=== PATIENT | male | born 1955 | race Caucasian/White ===

== ENCOUNTER → 2017-07-25 | Outpatient (CLI) | payer OTHER ==
--- NOTE | 2017-07-26 15:40 | Diagnostic Imaging Report ---
INDICATION: Cough for 2-3 months. TIME OF EXAM: 12:12 PM COMPARISON: No prior studies are available for comparison. FINDINGS: The heart size is normal. There is hyperinflation consistent with COPD. No infiltrates are detected. No effusion or pneumothorax is identified. IMPRESSION: COPD. No acute abnormality is detected. Dictated by: Dictated on workstation # [id number]
== END ==
LOC: RAD 11:42
PROVIDERS: ATTEND Family Medicine
DX: R05 Cough (principal)
CPT/HCPCS: 71046

== ENCOUNTER → 2017-08-02 | Outpatient (CLI) | payer OTHER ==
[~2017-08-02] MED LIST: LACT1CAP64 PO; METR500T PO; RT-ALBUTEROL SULF 2.5 MG/3 ML PRE-MIX VIAL INH ONE; SULF1TAB35 PO
== END ==
LOC: RT 14:00
PROVIDERS: ATTEND Family Medicine
DX: J44.9 Chronic obstructive pulmonary disease, unspecified (principal)
CPT/HCPCS: 94060; 94726; 94729

== ENCOUNTER → 2017-10-31 | Outpatient (CLI) | payer OTHER ==
[~2017-10-31] MED LIST changes: -RT-ALBUTEROL SULF 2.5 MG/3 ML PRE-MIX VIAL INH ONE
== END ==
LOC: CARD 08:43
PROVIDERS: ATTEND Internal Medicine Interventional Cardiology
DX: R07.9 Chest pain, unspecified (principal); A77.0 Spotted fever due to Rickettsia rickettsii; R55 Syncope and collapse
CPT/HCPCS: 93306

== ENCOUNTER 2017-11-02 07:51 | Outpatient (RCR) | payer OTHER ==
[~2017-11-02 07:51] MED LIST changes: -CATHETER FLUSH 10 ML SYR IV PRN; -REGADENOSON 0.4 MG/5 ML SYR (LEXISCAN) IV ONE
== END 2017-11-14 | disposition home or self-care (01) ==
LOC: CARD 07:51
PROVIDERS: ATTEND Internal Medicine Interventional Cardiology
DX: R07.9 Chest pain, unspecified (principal); R55 Syncope and collapse; A77.0 Spotted fever due to Rickettsia rickettsii
CPT/HCPCS: 93225; 93226

== ENCOUNTER → 2017-11-02 | Outpatient (CLI) | payer OTHER ==
[~2017-11-02] VITALS: Ht 185.4 cm; Wt 79.4 kg
[~2017-11-02] MED LIST changes: +CATHETER FLUSH 10 ML SYR IV PRN; +REGADENOSON 0.4 MG/5 ML SYR (LEXISCAN) IV ONE
[2017-11-02 09:15] VITALS: BP 123/82
[2017-11-02 09:19] VITALS: BP 122/71
--- NOTE | 2017-11-02 16:33 | Cardiology Stress Test Report ---
Stress Test Report Type of NM Stress Test: Test Type: LEXISCAN 0.4MG/5ML Date of Procedure/Referring: Date of Procedure: Nov 02, 2017 PCP Joel West MD Admitting Physician Quyen Womack MD Indications: Chest pain Baseline Heart Rate: 60 Baseline Blood Pressure: Blood Pressure Systolic: 123 Blood Pressure Diastolic: 82 Baseline EKG: Baseline EKG: sinus rhythm Summary: The patient was brought to the stress lab after informed consent was taken. Stress test was performed according to the Lexiscan protocol. 0.4 mg of IV Lexiscan was given. Low-grade exercise was performed. Baseline EKG showed sinus rhythm at 60 BPM. Initial blood pressure was 123/82 mmHg. Maximum heart rate was 110 bpm and blood pressure 123/73 mmHg. Patient did not have any chest pain, arrhythmias or ST segment changes during the stress test. 10.60 mCi of Myoview were given for rest imaging and 29.7 mCi of Myoview given for stress imaging. Transient ischemic dilatation score 1.04, EF 48 percent. Normal wall motion. Normal myocardial perfusion imaging during rest and stress. Conclusion: Pharmacological stress test was negative for ischemia. Normal LV function with no wall motion abnormalities. Normal myocardial perfusion imaging during rest and stress. Joel WEST MD Nov 02, 2017 16:33
[2017-11-03 15:55] VITALS: BP 123/82
== END ==
LOC: CARD 07:49
PROVIDERS: ATTEND Internal Medicine Interventional Cardiology
DX: R07.9 Chest pain, unspecified (principal); A77.0 Spotted fever due to Rickettsia rickettsii; R55 Syncope and collapse
CPT/HCPCS: 78452; 93017

== ENCOUNTER → 2018-06-29 | Outpatient (CLI) | payer OTHER ==
--- NOTE | 2018-06-29 13:08 | Diagnostic Imaging Report ---
INDICATION: Chest pressure. TIME OF EXAM: 12:38 p.m. Correlation is made with prior study from 07/25/2017. The heart size is normal. The pulmonary vascularity is unremarkable. The lungs are clear. No infiltrate, effusion or pneumothorax is detected. IMPRESSION: No acute cardiopulmonary process is detected. Dictated by: Dictated on workstation # [id number]
== END ==
LOC: RAD 12:00
PROVIDERS: ATTEND Family Medicine
DX: R07.89 Other chest pain (principal); Z87.898 Personal history of other specified conditions
CPT/HCPCS: 71046

== ENCOUNTER 2020-09-02 08:50 | Outpatient (RCR) | payer OTHER ==
[~2020-09-02] VITALS: Ht 185.5 cm; Wt 88.6 kg
[~2020-09-02 08:50] MED LIST changes: +TMSL.4C PO
[2020-09-04] MEDS ORDERED: ESOM20CA58 PO (11:16)
== END 2020-09-03 09:01 | disposition home or self-care (01) ==
LOC: PREOP 08:50
PROVIDERS: ATTEND Internal Medicine
DX: Z01.812 Encounter for preprocedural laboratory examination (principal); Z20.822 Contact with and (suspected) exposure to COVID-19
CPT/HCPCS: 87635

== ENCOUNTER 2020-09-04 09:09 | Day surgery (SDC) | payer MEDICARE, OTHER ==
--- NOTE | 2020-08-26 02:48 | HISTORY AND PHYSICAL ---
DATE OF SERVICE: PANENDOSCOPY HISTORY AND PHYSICAL DATE OF ADMISSION: 09/04/2020 HISTORY OF PRESENT ILLNESS: The patient is a 65-year-old white male referred for screening colonoscopy as well as diagnostic EGD by Dr. Quyen Womack. He had one other colonoscopy performed over 10 years ago. He does not recall if there are any problems/polyps and he is not aware of any family history of colon cancer. He denies bowel habit changes, noted no bright red blood per rectum or melena. 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 After antibiotics, symptoms improved, but over the past six months, he has had recurrence of a nonproductive cough. He is not aware of any heartburn type symptoms. Sometimes, he will have a little bit of a catching sensation, but it is difficult to tell whether there it is truly any overt dysphagia. He has had no melena or bright red blood per rectum. Denies any change in weight. FAMILY HISTORY: Father at the age of 94 of natural causes. Mother had what sounds like a benign brain tumor, but did require [employer] shunt at the age of 49, at the age of 78. He has two sisters and one living brother with no health problems. No vascular disease or other malignancies noted. PAST MEDICAL HISTORY: Significant for hyperlipidemia with no known history of coronary artery disease. PAST SURGICAL HISTORY: Significant for splenectomy for traumatic reasons many years ago now. REVIEW OF SYSTEMS: CONSTITUTIONAL: The patient denies night sweats, chills, fever, persistent dry cough. PULMONARY: Other than cough, denies wheezing. Some occasional mild postnasal drip, no known history of allergic symptoms. GASTROINTESTINAL: As noted in the HPI. CARDIOVASCULAR: The patient denies chest pain, orthopnea, PND, pedal edema or dyspnea on exertion. PHYSICAL EXAMINATION: GENERAL: Reveals a normal white male, appears to be in no acute distress. VITAL SIGNS: Weight 191 pounds, blood pressure 110/70. HEENT: Unremarkable. NECK: Revealed no JVD, adenopathy or bruits. CHEST: Clear to auscultation. CARDIOVASCULAR: Revealed a regular rate and rhythm without murmur, S3 or S4. ABDOMEN: Soft, supple without mass, organomegaly or tenderness. EXTREMITIES: Reveal no cyanosis, clubbing or edema. ASSESSMENT AND PLAN: The patient was set up for diagnostic colonoscopy and diagnostic EGD due to chronic nonproductive cough. Prep instructions with the Suprep kit were given and questions were answered. I thank you for the referral of this pleasant gentleman. Job ID: [id number] DocumentID: [id number] Dictated Date: 08/24/2020 11:22:31 Cigarette Filter Inspector Date: 08/24/2020 11:52:10 Dictated By: ETHEL JOHN MD
[2020-09-04] VITALS (16 sets, daily range): BP systolic 92–131; BP diastolic 51–83
[~2020-09-04] VITALS: Ht 185.5 cm; Wt 88.6 kg
--- NOTE | 2020-09-04 08:53 | Pre-Op Note & Conscious Sedat ---
Pre-Operative Progress Note H&P Reviewed The H&P was reviewed, patient examined and no changes noted. Date H&P Reviewed: September 04, 2020 Time H&P Reviewed: 08:53 Conscious Sedation Pre-Proced ASA Score 3 For ASA 3 and 4: Consider anesthesia and medical clearance. Also, for patients with a history of failed moderate sedation consider anesthesia. Airway Lungs Heart ASA score ASA 1: a normal healthy patient ASA 2: a patient with a mild systemic disease (mid diabetes, controlled hypertension, obesity ASA 3: a patient with a severe systemic disease that limits activity (angina, COPD, prior Myocardial infarction) ASA 4: a patient with an incapacitating disease that is a constant threat to life (CHF, renal failure) ASA 5: a moribund patient not expected to survive 24 hrs. (ruptured aneurysm) ASA 6: a declared brain- patient whose organs are being harvested. For emergent operations, add the letter E after the classification Mallampati Classification Grade 2 Sedation Plan Analgesia, Amnesia, Plan communicated to team members, Discussed options with patient/fam, Discussed risks with patient/fam The patient is an appropriate candidate to undergo the planned procedure, sedation, and anesthesia. The patient immediately re-assessed prior to indication. ETHEL JOHN MD September 04, 2020 08:53
[~2020-09-04 09:09] MED LIST changes: +D5 LR IV SOLUTION 1,000 ML IV STA; +HURRICAINE EXT TUBE (BENZOCAINE) XX PRN; +MIDAZOLAM 5 MG/5 ML (VERSED) VIAL IV ONE; +fentaNYL INJ 100 MCG/2 ML AMP IVP ONE
[2020-09-04] MEDS ORDERED: D5 LR IV SOLUTION 1,000 ML IV ONE (09:12)
[2020-09-04] MEDS ORDERED: fentaNYL INJ 100 MCG/2 ML AMP ONE ×2 (09:24→09:35)
[2020-09-04] MEDS ORDERED: LIDOCAINE JELLY 2% 6 ML SYRINGE ONE (09:24)
[2020-09-04] MEDS ORDERED: HURRICAINE EXT TUBE (BENZOCAINE) ONE (09:24)
[2020-09-04] MEDS ORDERED: MIDAZOLAM 5 MG/5 ML (VERSED) VIAL ONE ×2 (09:24→09:51)
[2020-09-04] MEDS ORDERED: ESOM20CA58 PO (11:16)
--- NOTE | 2020-09-04 14:50 | Anesthesia-General Post-Op ---
MAC Patient Condition Mental Status/LOC: Same as Preop Cardiovascular: Satisfactory Nausea/Vomiting: Absent Respiratory: Satisfactory Pain: Controlled Complications: Absent Post Op Complications Complications None Follow Up Care/Instructions Patient Instructions None needed. Anesthesiology Discharge Order Discharge Order Patient is doing well, no complaints, stable vital signs, no apparent adverse anesthesia problems. No complications reported per nursing. ALLYSSA SCHAFFER CRNA September 04, 2020 14:50
--- NOTE | 2020-09-04 16:58 | OPERATIVE REPORT ---
DATE OF SERVICE: [facility] SUMMARY INDICATION FOR THE COLONOSCOPY: Screening. EGD is performed for evaluation of chronic cough, evaluate for reflux. The patient was placed in the left lateral decubitus position. The endoscope was inserted in the oral cavity and under direct visualization, esophagus was intubated. The endoscope was passed down the esophagus through the stomach and second portion of the duodenum. There was a mild amount of erythema noted at the Z-line with no evidence for Martinez's change or erosive esophagitis. A biopsy was obtained and submitted for histopathology. No evidence for hiatal hernia was noted. The cardia, the fundus and antrum of the stomach were unremarkable. The pylorus, pyloric channel, duodenal bulb and second portion of duodenum were unremarkable as well with no evidence of peptic ulcer disease. ASSESSMENT: The patient did have some mild erythema noted at the Z-line without evidence for erosive esophagitis. This does raise the possibility that reflux could be contributing to cough and the patient admitted that he had not taken Nexium for more than a week or two. A lot of times his coughing is when he first gets up in the morning, so I advised that he take Nexium 40 mg at bedtime and give it at least 1 month to see if this improves coughing symptoms. We then proceeded with screening colonoscopy. Prior to doing colonoscopy, digital rectal evaluation was performed. Anal sphincter tone was normal and the perianal reflexes intact. Prostate was normal in size, anodular, nontender to digital inspection. No abnormalities were noted on digital inspection of anal canal or distal rectal vault. The colonoscope was then inserted into the rectum and under direct visualization advanced to cecum. The cecum was identified by identification of the ileocecal valve and cecal strap. Photographic documentation was obtained. Careful inspection was made. Quality of the prep was good. FINDINGS: There was no evidence for internal or external hemorrhoids. Present in the proximal rectum was a diminutive 3 mm sessile polyp was biopsied and ablated with minimal blood loss. The sigmoid colon, descending colon, splenic flexure, transverse colon and hepatic flexure were unremarkable. Present in the proximal ascending colon were 2 adjacent diminutive questionable polyps, both were biopsied and ablated with no blood loss. The cecum of the colon was unremarkable. ASSESSMENT AND PLAN: Three small polyps were removed today, one from the rectum and two from the proximal descending colon. There was a good chance that none of them will be adenomatous and if this is the case, would just advocate consideration for repeat screening colonoscopy in 10 years. I thank you for the referral of this pleasant gentleman. Job ID: [id number] DocumentID: [id number] Dictated Date: 09/04/2020 12:31:12 Genetic Physician Date: 09/04/2020 16:57:23 Dictated By: ETHEL JOHN MD MTDD
== END 2020-09-04 11:20 | disposition home or self-care (01) ==
LOC: ENDO 09:09
PROVIDERS: ATTEND Internal Medicine
DX: D12.7 Benign neoplasm of rectosigmoid junction (principal); K29.50 Unspecified chronic gastritis without bleeding; R59.0 Localized enlarged lymph nodes; E78.5 Hyperlipidemia, unspecified; Z90.81 Acquired absence of spleen